=== PATIENT | male | born 1955 | race Two or more races ===

== ENCOUNTER 2024-05-04 13:54 | Inpatient (IN) | payer MEDICAID, OTHER ==
[~2024-05-04] VITALS: Ht 154.9 cm; Wt 79.0 kg
--- NOTE | 2024-05-04 14:51 | ED.PDOC ---
Musculoskeletal HPI Comments 68y M who presents to the ED for chief complaint of lower extremity pain. Pt states he was using a furniture dolley and moving approx 200 lbs of furniture and states the dolley and furniture fell on pt which pt states was approx 2 weeks prior. Pt has since been having ambulating and has been having pain by the L hip. Pt states over the past 2 days,he has noticed increasing pain from the L hip down to the L foot and came to the ED for further evaluation. pt has noted increased swelling by the L foot down. Pt otherwise denies any other symptoms at this time. Chief Complaint: Lower Extremity Time Seen by MD: 14:48 Primary Care Provider: DR ROSAS Reviewed Notes: Nurses Notes, Medications Allergies: Coded Allergies: NO KNOWN ALLERGIES (Unverified , 05/04/24) Information Source: Patient, Spouse Mode of Arrival: Ambulatory Brought in by: spouse Location: Left Extremity Location: Foot, Hip Timing: Weeks Prehospital treatment: None Severity: Moderate Able to Move Extremity: Yes Bear Weight: Limited Pain: Moderate Mechanism: Spontaneous Circumstances: Fall Onset of Symptoms: Spontaneous Symptoms: Swelling, Pain DVT Risk Factors: NONE Last Tetanus: Unknown Associated signs and symptoms: Leg pain, Hip pain Past Medical History PAST MEDICAL HISTORY: Denies Surgical History (Other): R elbow surgery Family History Family History: Family hx of DM Social History Smoker: Non-Smoker Alcohol: Occasionally Drugs: Denies Drug Use Lives In: Home Constitutional: denies: chills, diaphoresis, fatigue, fever, malaise, sweats, weakness, others EENTM: denies: blurred vision, double vision, ear bleeding, ear discharge, ear drainage, ear pain, ear ringing, eye pain, eye redness, hearing loss, mouth pain, mouth swelling, nasal discharge, nose bleeding, nose congestion, nose pain, photophobia, tearing, throat pain, throat swelling, voice changes, others Respiratory: denies: cough, hemoptysis, orthopnea, SOB at rest, shortness of breath, SOB with excertion, stridor, wheezing, others Cardiovascular: denies: chest pain, dizzy spells, diaphoresis, Dyspnea on exertion, edema, irregular heart beat, left arm pain, lightheadedness, palpitations, PND, syncope, others Gastrointestinal: denies: abdomen distended, abdominal pain, blood streaked bowels, constipated, diarrhea, dysphagia, difficulty swallowing, hematemesis, me susie, nausea, poor appetite, poor fluid intake, rectal bleeding, rectal pain, vomiting, others Genitourinary: denies: burning, dysuria, flank pain, frequency, hematuria, incontinence, penile discharge, penile sore, pain, testicle pain, testicle swelling, urgency, others Neurological: denies: dizziness, fainting, headache, left sided numbness, left sided weakness, numbness, paresthesia, pre-existing deficit, right sided numbness, right sided weakness, seizure, speech problems, tingling, tremors, weakness, others Musculoskeletal: reports: joint pain (L hip and LLE), joint swelling (L hip and LLE); denies: back pain, gout, muscle pain, muscle stiffness, neck pain, others Integumetry: denies: bruises, change in color, change in hair/nails, dryness, laceration, lesions, lumps, rash, wounds, others Allergic/Immunocompromised: denies: Difficulty Healing, Frequent Infections, Hives, Itching, others Hematologic/Lymphatic: denies: anemia, blood clots, easy bleeding, easy br uising, swollen glands, others Endocrine: denies: excessive hunger, excessive sweating, excessive thirst, excessive urination, flushing, intolerance to cold, intolerance to heat, unexplained weight gain, unexplained weight loss, others Psychiatric: denies: anxiety, bipolar disorder, depression, hopeless, panic disorder, schizophrenia, sleepless, suicidal, others All Other Systems: Reviewed and Negative Physical Exam General Appearance: Moderate Distress HEENT: Normal ENT Inspection, Pharynx Normal, TMs Normal Neck: Full Range of Motion, Non-Tender, Normal, Normal Inspection Respiratory: Chest Non-Tender, Lungs Clear, No Accessory Muscle Use, No Respiratory Distress, Normal Breath Sounds Cardiovascular: No Edema, No JVD, No Murmur, No Gallop, Normal Peripheral Pulses, Regular Rate/Rhythm Breast Exam: Deferred Gastrointestinal: No Organomegaly, Non Tender, No Pulsatile Mass, Normal Bowel Sounds, Soft Genitalia: Deferred Pelvic: Deferred Rectal: Deferred Extremities: No calf tenderness, Normal capillary refill, No pedal edema Musculoskeletal : Location: Left Extremity Location: Femur, Hip Apperance: Swelling, Limited ROM, Tenderness: Moderate Neurologic: Alert, 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 Was a procedure done?: No Differential Diagnosis EXT Differential Diagnosis: Deep Vein Thrombosis, Fracture, Sprain, Dislocation, DJD, Strain X-Ray, Labs, Meds, VS Vital Signs Date Time Temp Pulse Resp B/P (MAP) Pulse Ox O2 Delivery O2 Flow Rate FiO2 05/04/24 18:36 60 13 151/72 (98) 99 05/04/24 17:16 69 05/04/24 16:41 58 18 100 Room Air* 0 21 05/04/24 16:20 98.7 58 18 151/72 (98) 100 98.7 05/04/24 14:08 98.6 63 19 143/82 (102) 99 Lab Test 05/04/24 15:04 Range/Units White Blood Count 6.0 4.4-10.8 10^3/uL Red Blood Count 3.46 L 4.5-5.90 10^6/uL Hemoglobin 10.9 L 13.5-17.5 g/dL Hematocrit 31.6 L 41.0-53.0 % Mean Corpuscular Volume 91.3 80.0-100.0 fL Mean Corpuscular Hemoglobin 31.7 28.0-32.0 pg Mean Corpuscular Hemoglobin Concent 34.7 32.0-36.0 g/dL Red Cell Distribution Width 14.0 11.8-14.3 % Platelet Count 225 140-450 10^3/uL Mean Platelet Volume 7.3 6.9-10.8 fL Neutrophils (%) (Auto) 58.5 37.0-80.0 % Lymphocytes (%) (Auto) 29.6 10.0-50.0 % Monocytes (%) (Auto) 6.0 0.0-12.0 % Eosinophils (%) (Auto) 5.1 0.0-7.0 % Basophils (%) (Auto) 0.8 0.0-2.0 % Neutrophils # (Auto) 3.5 1.6-8.6 10 ^3/uL Lymphocytes # (Auto) 1.8 0.4-5.4 10 ^3/uL Monocytes # (Auto) 0.4 0-1.3 10 ^3/uL Eosinophils # (Auto) 0.3 0-0.8 10 ^3/uL Basophils # (Auto) 0 0-0.2 10 ^3/uL Nucleated Red Blood Cells 0.1 % Sodium Level 140 136-145 mmol/L Potassium Level 3.6 3.5-5.1 mmol/L Chloride Level 107 98-107 mmol/L Carbon Dioxide Level 29 20-31 mmol/L Anion Gap 4 L 5-15 Blood Urea Nitrogen 13 9-23 mg/dL Creatinine 1.11 0.700-1.30 mg/dL Glomerular Filtration Rate Calc 73 >90 mL/min BUN/Creatinine Ratio 11.7 10.0-20.0 Serum Glucose 78 74-106 mg/dL Calcium Level 9.6 8.7-10.4 mg/dL PROCEDURE(s): PL2CT - PELVIS WO CONTRAST IMPRESSION: 1. Comminuted intertrochanteric fracture left femur. Ultrasound of the left lower extremities negative for DVT Based on the findings on the intertroch fracture, the patient was being admitted IV Hep-Lock was established. The patient was being given morphine 4 mg IV push for the pain and Zofran for the nausea The CBC is within normal limits except for anemia with a hemoglobin of 10.9 The patient was being admitted The patient understands and agrees with the management. Images Reviewed?: Images reviewed and evaluated by me Time of 1ST Reevaluation: 15:20 Reevaluation 1ST: Unchanged Patient Education/Counseling: Diagnosis, Treatment, Prognosis Family Education/Counseling: Diagnosis, Treatment, Prognosis Departure 1 Departure Time of Disposition: 18:40 Impression: Primary Impression: Fracture, intertrochanteric, left femur Qualified Codes: S72.142A - Displaced intertrochanteric fracture of left femur, initial encounter for closed fracture Additional Impressions: History of fall Anemia Qualified Codes: D64.9 - Anemia, unspecified Disposition: ADMITTED INPATIENT Admit to: Med Surg Condition: Fair Critical Care Note Critical Care Time?: No Stability Stability form required: Yes Unstable for transfer: ED Physician Assesment (Clinical assesment) Heart Score Heart Score: Heart Score Response (Comments) Value History N/A 0 EKG N/A 0 Age N/A 0 Risk Factors N/A 0 Troponin N/A 0 Total 0 I personally scribed for SWETA CALLAHAN MD ([email or web address]) on 05/04/24 at 14:51. Electronically submitted by Barry Baeza ([email or web address]). I personally scribed for SWETA CALLAHAN MD ([email or web address]) on 05/04/24 at 15:27. Electronically submitted by Barry Baeza ([email or web address]). SWETA CALLAHAN MD May 04, 2024 14:51
--- NOTE | 2024-05-04 15:14 | DVH ---
Exam: CT PELVIS WO CONTRAST History: fall Comparison Study: None available at time of dictation. Technique: Multidetector CT of the pelvis was performed from iliac crests to pubic symphysis after th e administration of intravenous contrast was administered during this examination. Portal venous imag ing was obtained. Axial, coronal and sagittal multiplanar reformats were performed by the technologis t on a separate workstation. Radiation Dose : CT Dose: CTDI volume is 17.73 mGy. Dose-length product is 655.35 mGy*cm Findings: Visualized bowel: No bowel wall thickening or dilatation. Ascites: Absent Lymphadenopathy: No pelvic or mesenteric lymphadenopathy. Vasculature: The visualized abdominal aorta is normal in size and caliber. Abdominal and pelvic vesse ls demonstrate normal enhancement. Pelvic Organs: Unremarkable Musculoskeletal: No acute osseous abnormality. Bladder: Unremarkable Soft tissues: Unremarkable. IMPRESSION: 1. Comminuted intertrochanteric fracture left femur. HS:Y All CT scans at this medical facility are performed using dose modulation techniques as appropriate t o a performed exam including the following: Automated exposure control was utilized; adjustment of th e MA and/or KV according to patient size; and use of iterative reconstruction technique.
[2024-05-04 15:25] LABS: Basophils # (auto) 0 10 ^3/uL (0-0.2); Basophils % (auto) 0.8 % (0.0-2.0); Eosinophils # (auto) 0.3 10 ^3/uL (0-0.8); Eosinophils % (auto) 5.1 % (0.0-7.0); Hematocrit 31.6 % (41.0-53.0); Hemoglobin 10.9 g/dL (13.5-17.5); Lymphocytes # (auto) 1.8 10 ^3/uL (0.4-5.4); Lymphocytes % (auto) 29.6 % (10.0-50.0); Mean Corpuscular Hemoglobin 31.7 pg (28.0-32.0); Mean Corpuscular Hgb Conc. 34.7 g/dL (32.0-36.0); Mean Corpuscular Volume 91.3 fL (80.0-100.0); Monocytes # (auto) 0.4 10 ^3/uL (0-1.3); Neutrophils # (auto) 3.5 10 ^3/uL (1.6-8.6); Neutrophils % (auto) 58.5 % (37.0-80.0); Nucleated Red Blood Cells % 0.1 %; Platelet Count (auto) 225 10^3/uL (140-450); Red Blood Cells 3.46 10^6/uL (4.5-5.90)
[2024-05-04 15:37] LABS: Chloride 107 mmol/L (98-107); Potassium 3.6 mmol/L (3.5-5.1); Sodium 140 mmol/L (136-145)
[2024-05-04 15:38] LABS: Anion Gap 4 (5-15); Carbon Dioxide 29 mmol/L (20-31)
[2024-05-04 15:39] LABS: Calcium 9.6 mg/dL (8.7-10.4)
[2024-05-04 15:43] LABS: Glucose 78 mg/dL (74-106)
[2024-05-04 15:44] LABS: BUN/Creatinine Ratio 11.7 (10.0-20.0); Blood Urea Nitrogen 13 mg/dL (9-23)
[2024-05-04 16:41] VITALS: PULSE 58; RESP 18; O2SAT 100
--- NOTE | 2024-05-04 17:18 | DVH ---
EXAM: US LT LOWER DVT Clinical History: fall Comparison: None Technique: Duplex Doppler evaluation of the deep venous systems of the left lower extremity from the common femo ral veins to the popliteal veins including color Doppler and spectral/pulsed waveform analysis was pe rformed. Findings: No visible intraluminal venous thrombus. No evidence of incompressibility or abnormal color or spectr al Doppler flow visualized in the deep left lower extremity veins. Proximal greater saphenous vein is grossly unremarkable. Impression: 1. No sonographic evidence of deep venous thrombosis throughout the left lower extremity from the pop liteal vein to the common femoral vein.
[2024-05-04] MEDS ORDERED: LORazepam 0.5 MG TAB PO PRN (19:00)
[2024-05-04] MEDS ORDERED: ONDANSETRON HCL 4 MG/2 ML VIAL IV PRN (19:00)
[2024-05-04] MEDS ORDERED: ACETAMINOPHEN 325 MG TAB PO PRN (19:00)
[2024-05-04] MEDS ORDERED: TEMAZEPAM 15 MG CAP PO PRN (19:00)
[2024-05-04] MEDS ORDERED: D5W 5% 1,000 ML IV SCH (19:00)
[2024-05-04] MEDS ORDERED: MAALOX PLUS or MAALOX 30 ML PO PRN (19:00)
--- NOTE | 2024-05-04 19:28 | DVHHP2 ---
History of Present Illness Reason for Visit: Leg pain History of Present Illness 68 yo male moving furniture 2 weeks ago started having severe pain during this process and tried to get through it without medical evaluation patient stated that about 2 days ago the pain became to much to manage and walking became extremely painful on ed evaluation patient was shown to have a fracture current plan is surgical evaluation for possible repair Review of Systems Constitutional: No: Fever, Chills, Sweats, Weakness, Malaise, Other Eyes: No: Pain, Vision change, Conjunctivae inflammation, Eyelid inflammation, Other, Redness ENT: No: Ear pain, Ear discharge, Nose pain, Nose discharge, Nose congestion, Mouth pain, Mouth swelling, Throat pain, Throat swelling, Other Respiratory: No: Cough, Dry, Shortness of breath, SOB with excertion, Wheezing, Hemoptysis, Pleuritic Pain, Sputum, Wheezing, Other Cardiovascular: No: Chest Pain, Palpitations, Orthopnea, Paroxysmal Noc. Dyspne a, Edema, Lt Headedness, Other Gastrointestinal: No: Nausea, Vomiting, Abdominal Pain, Diarrhea, Constipation, Melena, Hematochezia, Other Genitourinary: No Dysuria, No Frequency, No Incontinence, No Hematuria, No Retention, No Other Musculoskeletal: leg pain; No: other, neck pain, shoulder pain, arm pain, back pain, hand pain, foot pain Skin: No: Rash, Lesions, Jaundice, Bruising, Other Neurological: No: Weakness, Numbness, Incoordination, Change in speech, Confusion, Seizures, Other Allergies: Coded Allergies: NO KNOWN ALLERGIES (Unverified , 05/04/24) Exam Vital Signs Vital Signs Date Time Temp Pulse Resp B/P (MAP) Pulse Ox O2 Delivery O2 Flow Rate FiO2 05/04/24 18:36 60 13 151/72 (98) 99 05/04/24 16:41 Room Air* 0 21 05/04/24 16:20 98.7 98.7 General Appearance: Alert, Oriented X3 HEENT: Atraumatic, PERRLA Respiratory: Clear to auscultation, Normal air movement Cardiovascular: Regular rate, Normal S1, Normal S2 Abdominal: Normal bowel sounds, No tenderness Extremities: No clubbing, No cyanosis Skin: No rashes, No breakdown Neuro: Other (decreased ambulation decreased strength ) Labs/Xrays Labs Test 05/04/24 15:04 Range/Units White Blood Count 6.0 4.4-10.8 10^3/uL Red Blood Count 3.46 L 4.5-5.90 10^6/uL Hemoglobin 10.9 L 13.5-17.5 g/dL Hematocrit 31.6 L 41.0-53.0 % Mean Corpuscular Volume 91.3 80.0-100.0 fL Mean Corpuscular Hemoglobin 31.7 28.0-32.0 pg Mean Corpuscular Hemoglobin Concent 34.7 32.0-36.0 g/dL Red Cell Distribution Width 14.0 11.8-14.3 % Platelet Count 225 140-450 10^3/uL Mean Platelet Volume 7.3 6.9-10.8 fL Neutrophils (%) (Auto) 58.5 37.0-80.0 % Lymphocytes (%) (Auto) 29.6 10.0-50.0 % Monocytes (%) (Auto) 6.0 0.0-12.0 % Eosinophils (%) (Auto) 5.1 0.0-7.0 % Basophils (%) (Auto) 0.8 0.0-2.0 % Neutrophils # (Auto) 3.5 1.6-8.6 10 ^3/uL Lymphocytes # (Auto) 1.8 0.4-5.4 10 ^3/uL Monocytes # (Auto) 0.4 0-1.3 10 ^3/uL Eosinophils # (Auto) 0.3 0-0.8 10 ^3/uL Basophils # (Auto) 0 0-0.2 10 ^3/uL Nucleated Red Blood Cells 0.1 % Sodium Level 140 136-145 mmol/L Potassium Level 3.6 3.5-5.1 mmol/L Chloride Level 107 98-107 mmol/L Carbon Dioxide Level 29 20-31 mmol/L Anion Gap 4 L 5-15 Blood Urea Nitrogen 13 9-23 mg/dL Creatinine 1.11 0.700-1.30 mg/dL Glomerular Filtration Rate Calc 73 >90 mL/min BUN/Creatinine Ratio 11.7 10.0-20.0 Serum Glucose 78 74-106 mg/dL Calcium Level 9.6 8.7-10.4 mg/dL Assessment/Plan Assessment/Plan Admit to Med/Surg Hip Fracture Left fracture seen CT pelvic exam PRN pain management requires ortho evaluation Plan discussed with: Patient My Orders Orders - FARIDA NEGRON MD Procedure Category Date Status Time * Orthopedic Consult CONS 05/04/24 Transmitted 18:54 Admit ADMIT 05/04/24 Transmitted 18:55 Code Status CODE 05/04/24 Transmitted 18:55 Vital Signs [facility] 05/04/24 In Process 18:55 Review Orders With [facility] 05/04/24 In Process Adm. 18:55 Npo (Nothing By DIET 05/05/24 Transmitted Mouth) Diet Breakfast Lorazepam Tablet [facility] 05/04/24 Logged (Ativan Tablet) 19:00 Alum & Mag PHA 05/04/24 Logged Hydrox-Simethicone 19:00 Docusate Sodium PHA 05/04/24 Logged Capsule (Colace 19:00 Acetaminophen Tablet PHA 05/04/24 Logged (Tylenol Tablet) 19:00 Temazepam (Restoril) PHA 05/04/24 Logged 19:00 Notify Md Of Changes [facility] 05/04/24 In Process From Base 18:55 Advance Directive [facility] 05/04/24 In Process 18:55 Basic Metabolic Panel LAB 05/05/24 Verified 04:00 Complete Blood Count LAB 05/05/24 Verified 04:00 D5w 5% (Dextrose 5%) [facility] 05/04/24 Logged 19:00 Patient Condition ORDERS 05/04/24 Transmitted 18:55 Allergies [facility] 05/04/24 In Process 18:55 Hydrocodone-Acet PHA 05/04/24 Logged 5/325mg Tab ([place] 19:00 Ondansetron Hcl PHA 05/04/24 Logged (Zofran) 19:00 Morphine Sulfate [facility] 05/04/24 Logged Injection 19:00 Oxygen By Nasal RT 05/04/24 Transmitted Cannula 18:55 Problem List: (1) History of fall (2) Fracture, intertrochanteric, left femur Date of Service: May 04, 2024 Billing Provider: FARIDA NEGRON MD Common Visit Codes: [id number] INP/OBS CARE (HIGH) FARIDA NEGRON MD May 04, 2024 19:28
[2024-05-04] MEDS: D5W/SOD CHL 0.45% 1,000 ML IV SCH (20:55)
[2024-05-04 22:42] VITALS: BP 152/82; PULSE 74; RESP 18; TEMP 98; O2SAT 98
[2024-05-05] VITALS (8 sets, daily range): BP systolic 120–168; BP diastolic 73–85; PULSE 56–84; RESP 11–18; TEMP 97.4–99.1; O2SAT 94–100
[2024-05-05 06:22] LABS: Basophils # (auto) 0 10 ^3/uL (0-0.2); Basophils % (auto) 0.7 % (0.0-2.0); Eosinophils # (auto) 0.3 10 ^3/uL (0-0.8); Eosinophils % (auto) 5.6 % (0.0-7.0); Hematocrit 29.4 % (41.0-53.0); Hemoglobin 10.2 g/dL (13.5-17.5); Lymphocytes # (auto) 1.4 10 ^3/uL (0.4-5.4); Lymphocytes % (auto) 25.4 % (10.0-50.0); Mean Corpuscular Hemoglobin 31.3 pg (28.0-32.0); Mean Corpuscular Hgb Conc. 34.6 g/dL (32.0-36.0); Mean Corpuscular Volume 90.5 fL (80.0-100.0); Monocytes # (auto) 0.3 10 ^3/uL (0-1.3); Monocytes % (auto) 6.5 % (0.0-12.0); Neutrophils # (auto) 3.3 10 ^3/uL (1.6-8.6); Neutrophils % (auto) 61.8 % (37.0-80.0); Platelet Count (auto) 196 10^3/uL (140-450); Red Blood Cells 3.25 10^6/uL (4.5-5.90); Red Cell Distribution Width 13.7 % (11.8-14.3); White Blood Cell 5.3 10^3/uL (4.4-10.8)
[2024-05-05 06:32] LABS: Anion Gap 6 (5-15); Carbon Dioxide 28 mmol/L (20-31); Chloride 109 mmol/L (98-107); Potassium 3.6 mmol/L (3.5-5.1); Sodium 143 mmol/L (136-145)
[2024-05-05 06:33] LABS: Calcium 9.6 mg/dL (8.7-10.4)
[2024-05-05 06:38] LABS: BUN/Creatinine Ratio 12.7 (10.0-20.0); Blood Urea Nitrogen 13 mg/dL (9-23); Glucose 92 mg/dL (74-106)
--- NOTE | 2024-05-05 06:55 | DVH ---
CHEST RADIOGRAPH Indication:cad Technique: Single frontal view of the chest was obtained COMPARISON: None FINDINGS: Lines and Tubes: None Lungs: Clear Pleura: No effusion. No pneumothorax. Cardiomediastinal contours: Unremarkable Bones: Unremarkable IMPRESSION: No acute disease.
[2024-05-05 06:56] LABS: INR 1.15 (0.9-1.15); Prothrombin Time 12.1 sec (9.3-11.8)
--- NOTE | 2024-05-05 07:46 | DVH ---
left hip radiograph CLINICAL INDICATION: hip fracture/ surg planning TECHNIQUE: 2 radiographic views of the left hip were obtained. Comparison: None FINDINGS: Comminuted intertrochanteric fracture left femur IMPRESSION: Comminuted intertrochanteric fracture left femur
[2024-05-05 08:26] LABS: Hepatitis B Surface Antigen Negative (Negative)
[2024-05-05 08:47] LABS: Hepatitis C Antibody Negative (Negative)
[2024-05-05] MEDS ORDERED: KETAMINE 50mg/ML 1ml syringe ONE (09:17)
[2024-05-05] MEDS ORDERED: fentaNYL CITRATE 100 MCG/2 ML VL ONE (09:17)
[2024-05-05] MEDS ORDERED: MIDAZOLAM HCL 2MG/2ML 2ml VIAL (1mg/ml) ONE (09:17)
[2024-05-05] MEDS: BUPIVACAINE W/ EPINEPH 0.5% INJ 50ML MDV IJ ONE (09:31)
--- NOTE | 2024-05-05 11:34 | DVHPN2 ---
Subjective The patient is seen and examined at bedside. No change overnight. Complain of leg pain. Waiting for surgery. Reviewed: Care Plan, H&P, Labs, Medications, Previous Orders Changes from previous H/P or p: No Changes Eyes: No Pain, No Vision change, No Conjunctivae inflammation, No Eyelid inflammation, No Other, No Redness ENT: No Ear pain, No Ear discharge, No Nose pain, No Nose discharge, No Nose congestion, No Mouth pain, No Mouth swelling, No Throat pain, No Throat swelling, No Other Cardiovascular: No Chest Pain, No Palpitations, No Orthopnea, No Paroxysmal Noc. Dyspnea, No Edema, No Lt Headedness, No Other Respiratory: No Cough, No Dry, No Shortness of breath, No SOB with excertion, No Wheezing, No Hemoptysis, No Pleuritic Pain, No Sputum, No Other Gastrointestinal: No Nausea, No Vomiting, No Abdominal Pain, No Diarrhea, No Constipation, No Melena, No Hematochezia, No Other Genitourinary: No Dysuria, No Frequency, No Incontinence, No Hematuria, No Retention, No Other Musculoskeletal: No other, No neck pain, No shoulder pain, No arm pain, No back pain, No hand pain; leg pain; No foot pain Skin: No Rash, No Lesions, No Jaundice, No Bruising, No Other Objective Vitals Vital Signs Date Time Temp Pulse Resp B/P (MAP) Pulse Ox O2 Delivery O2 Flow Rate FiO2 05/05/24 09:00 98.3 68 18 138/77 (97) 97 98.3 05/04/24 22:42 Room Air* 0 21 Intake/Output Intake and Output 05/05/24 06:59 Intake Total 510 ml Output Total 300 ml Balance 210 ml Intake Oral 0 ml IV Total 510 ml Output Urine Total 300 ml General Appearance: Alert, Oriented X3, Cooperative, No acute distress HEENT: Atraumatic, PERRLA, EOMI, Mucous membr. moist/pink Neck: Supple Lungs: Clear to auscultation, Normal air movement Cardiovascular: Regular rate, Normal S1, Normal S2, No murmurs, Gallops, Rubs Abdomen: Normal bowel sounds, Soft, No tenderness Musculoskeletal: Other (Left leg limited range of motion due to the fracture) Psych/Mental Status: Mental status NL Medications Current Medications Medications Dose Ordered Sig/Payal Route Start Time Stop Time Status Last Admin Dose Admin Lorazepam 0.5 mg Q6HP PRN PO 05/04/24 19:00 Al Hydrox/Mg Hydrox/Simethicone 30 ml Q6HP PRN PO 05/04/24 19:00 Docusate Sodium 100 mg BIDPRN PRN PO 05/04/24 19:00 Acetaminophen 650 mg Q6HP PRN PO 05/04/24 19:00 Temazepam 15 mg QHSP PRN PO 05/04/24 19:00 Acetaminophen/ Hydrocodone Bitart 1 tab Q4HP PRN PO 05/04/24 19:00 Ondansetron HCl 4 mg Q4HP PRN IV 05/04/24 19:00 Morphine Sulfate 2 mg Q4HPRN PRN IV 05/04/24 19:00 Dextrose/Sodium Chloride 1,000 ml @ 60 mls/hr [id number] IV 05/04/24 20:45 05/04/24 20:55 60 MLS/HR Laboratory Results Laboratory Tests 05/05/24 05:43 Chemistry Test 05/04/24 15:04 05/05/24 05:43 Calcium Level 9.6 mg/dL (8.7-10.4) 9.6 mg/dL (8.7-10.4) Coagulation Test 05/05/24 05:43 Prothrombin Time 12.1 sec (9.3-11.8) H Prothrombin Time INR 1.15 (0.9-1.15) Labs and/or images reviewed: Labs reviewed by me Assessment/Plan Assessment/Plan History of fall while moving furniture Fracture of intertrochanteric left femur Plan: Continuing current management with IV pain medication and [place] for pain control. Continuing with IV fluid. Waiting for orthopedic surgeon for surgery. Plan discussed with: Patient Date of Service: May 05, 2024 Billing Provider: MINDI BOWENS MD Common Visit Codes: [id number] INP/OBS CARE(HIGH) MINDI BOWENS MD May 05, 2024 11:34
[2024-05-05] MEDS: ceFAZolin 2 GM/D5W100ml 100 ML IV ONE (11:52)
[2024-05-05] MEDS: TETRACAINE 1% INJ 2 ML VIAL IJ ONE (12:39)
[2024-05-05] MEDS ORDERED: ONDANSETRON HCL 4 MG/2 ML VIAL IV ONE (14:15)
[2024-05-05] MEDS ORDERED: ePHEDrine SULFATE 50 MG/ML AMP IV PRN (14:15)
[2024-05-05] MEDS ORDERED: ePHEDrine SULFATE 50 MG/ML AMP ONE (14:32)
--- NOTE | 2024-05-05 15:09 | DVH ---
C-ARM FLUOROSCOPY: PROCEDURE: ORIF left hip FLUOROSCOPY TIME: 43 . 4 sec
--- NOTE | 2024-05-05 15:09 | DVH ---
C-ARM FLUOROSCOPY: PROCEDURE: ORIF left hip FLUOROSCOPY TIME: 43 . 4 sec
[2024-05-05] MEDS: DOCUSATE SOD 100 MG CAP PO PRN (16:45)
[2024-05-05] MEDS: MORPHINE SULFATE INJ 2 MG/ml SYRG IV PRN (16:45)
--- NOTE | 2024-05-05 18:07 | DVHOP ---
DATE OF SURGERY: 05/04/2024 PREOPERATIVE DIAGNOSIS: Left intertrochanteric hip fracture. POSTOPERATIVE DIAGNOSIS: Left intertrochanteric hip fracture. PROCEDURES: * Placement of a left femoral intramedullary nail. * Stress radiographs of the left hip. SURGEON: Danny Dietrich MD ANESTHESIA: General. COMPLICATIONS: None. CONDITION: Stable to PACU. ASSESSMENT AND PLAN: The patient will be weightbearing as tolerated on the left lower extremity, PT, OT out of bed daily. Follow up in 2 weeks' time. SURGICAL INDICATIONS: The patient is a 68-year-old male who had a fall 2 weeks ago. He has not been seen in the emergency room. He came to the emergency room yesterday, was noted to have an intertrochanteric hip fracture. He stated that he has not been ambulating since the fall for approximately 2 weeks' time. He is limping around since that injury. He was seen in the office. The patient understands the risks and benefits of surgical and nonsurgical treatment based on the intertrochanteric hip fracture. Based on these parameters, the patient understands the risks and benefits of surgical and nonsurgical treatment, opts for surgical treatment of the left lower extremity. DESCRIPTION OF PROCEDURE: The patient seen in the preoperative holding area, the left lower extremity was marked. The patient was brought to the operative suite. General anesthesia was then induced. Timeout was called per hospital protocol. Left lower extremity was prepped and draped in a standard fashion. Ancef was given for infection prophylaxis. Timeout was performed to hospital protocol. The left lower extremity was prepped and draped in a standard fashion. Incision was made approximately 3 cm to the tip of the greater trochanteric region. Once that is then done, the incision was then made followed by the ball-tipped guidewire being placed, followed by an AP and lateral x-ray to ensure adequate starting point on the tip of the greater trochanteric region. Opening reamer was then placed based on the longevity of the fracture and callus. The ball-tipped guidewire was then placed and a 12 mm reamer was then passed. A 10 x 125 ITS nail was then brought onto the field and placed. The screw was then placed center-center position. I tried to get the best diameter based on the chronicity of the fracture. Based on these parameters, it was measured to be 95 mm in length. A short screw was then placed based on the inferior calcar being robust in nature. Once that was then done, placed. Once that was then done, a distal interlock screw was then placed in a perfect [place] technique. Once that was then done, stress radiographs were undertaken. Once that was then done and taken, the guide was then removed. Stress radiographs of the left hip showed adequate fracture fixation. The wound was irrigated copiously with saline and closed with 0 Vicryl, 2-0 Vicryl and candy. The patient will be weightbearing as tolerated on the left lower extremity. PT, OT out of bed daily. Follow up in 2 weeks' time. MD NICK Duron/SHARON/ZEINA/ERIK TID: [id number] RECEIPT: [id number]
[2024-05-06] VITALS (8 sets, daily range): BP systolic 121–153; BP diastolic 70–80; PULSE 72–84; RESP 18–21; TEMP 98.1–99.4; O2SAT 94–99
[2024-05-06] MEDS: HYDROcodone-ACET 5/325MG TAB PO PRN (00:44)
--- NOTE | 2024-05-06 13:47 | DVHPN2 ---
Reviewed: Care Plan Changes from previous H/P or p: No Changes General: Per HPI Eyes: No Pain, No Vision change, No Conjunctivae inflammation, No Eyelid inflammation, No Other, No Redness ENT: No Ear pain, No Ear discharge, No Nose pain, No Nose discharge, No Nose congestion, No Mouth pain, No Mouth swelling, No Throat pain, No Throat swelling, No Other Cardiovascular: No Chest Pain, No Palpitations, No Orthopnea, No Paroxysmal Noc. Dyspnea, No Edema, No Lt Headedness, No Other Respiratory: No Cough, No Dry, No Shortness of breath, No SOB with excertion, No Wheezing, No Hemoptysis, No Pleuritic Pain, No Sputum, No Other Gastrointestinal: No Nausea, No Vomiting, No Abdominal Pain, No Diarrhea, No Constipation, No Melena, No Hematochezia, No Other Genitourinary: No Dysuria, No Frequency, No Incontinence, No Hematuria, No Retention, No Other Musculoskeletal: No other, No neck pain, No shoulder pain, No arm pain, No back pain, No hand pain; leg pain; No foot pain Skin: No Rash, No Lesions, No Jaundice, No Bruising, No Other Objective Vitals Vital Signs Date Time Temp Pulse Resp B/P (MAP) Pulse Ox O2 Delivery O2 Flow Rate FiO2 05/06/24 12:33 98.1 80 19 121/77 (92) 94 98.1 05/06/24 08:10 Room Air* 0 21 Intake/Output Intake and Output 05/06/24 07:00 Intake Total 750 ml Output Total 1350 ml Balance -600 ml Intake Oral 650 ml IV Total 100 ml Output Urine Total 1350 ml General Appearance: Alert, Oriented X3 HEENT: Atraumatic Cardiovascular: Regular rate Abdomen: Normal bowel sounds Medications Current Medications Medications Dose Ordered Sig/Payal Route Start Time Stop Time Status Last Admin Dose Admin Lorazepam 0.5 mg Q6HP PRN PO 05/04/24 19:00 Al Hydrox/Mg Hydrox/Simethicone 30 ml Q6HP PRN PO 05/04/24 19:00 Docusate Sodium 100 mg BIDPRN PRN PO 05/04/24 19:00 05/06/24 09:50 100 MG Acetaminophen 650 mg Q6HP PRN PO 05/04/24 19:00 Temazepam 15 mg QHSP PRN PO 05/04/24 19:00 Acetaminophen/ Hydrocodone Bitart 1 tab Q4HP PRN PO 05/04/24 19:00 05/06/24 06:29 1 TAB Ondansetron HCl 4 mg Q4HP PRN IV 05/04/24 19:00 Morphine Sulfate 2 mg Q4HPRN PRN IV 05/04/24 19:00 05/06/24 09:52 2 MG Dextrose/Sodium Chloride 1,000 ml @ 60 mls/hr [id number] IV 05/04/24 20:45 05/06/24 06:30 60 MLS/HR Laboratory Results Laboratory Tests 05/05/24 05:43 Labs and/or images reviewed: Labs reviewed by me, Image(s) reviewed by me Assessment/Plan Assessment/Plan Hip Fracture Left fracture seen CT pelvic exam PRN pain management requires ortho evaluation s/p surgery PT/OT to evaluate Plan discussed with: Patient Date of Service: May 06, 2024 Billing Provider: MIGUELINA HOLGUIN DO Common Visit Codes: [id number] INP/OBS CARE(HIGH) MIGUELINA HOLGUIN DO May 06, 2024 13:47
[2024-05-07] VITALS (7 sets, daily range): BP systolic 125–145; BP diastolic 56–78; PULSE 75–88; RESP 16–18; TEMP 36.7; O2SAT 93–97
[2024-05-07] MEDS ORDERED: NAP500T PO (12:43)
--- NOTE | 2024-05-07 12:45 | DVHDS2 ---
Discharge Summary Date of Admission May 04, 2024 at 18:55 Date of Discharge: May 07, 2024 Labs/Diagnostic Data: Laboratory Results Test 05/05/24 05:43 05/04/24 20:19 White Blood Count 5.3 10^3/uL (4.4-10.8) Red Blood Count 3.25 10^6/uL (4.5-5.90) Hemoglobin 10.2 g/dL (13.5-17.5) Hematocrit 29.4 % (41.0-53.0) Mean Corpuscular Volume 90.5 fL (80.0-100.0) Mean Corpuscular Hemoglobin 31.3 pg (28.0-32.0) Mean Corpuscular Hemoglobin Concent 34.6 g/dL (32.0-36.0) Red Cell Distribution Width 13.7 % (11.8-14.3) Platelet Count 196 10^3/uL (140-450) Mean Platelet Volume 7.2 fL (6.9-10.8) Neutrophils (%) (Auto) 61.8 % (37.0-80.0) Lymphocytes (%) (Auto) 25.4 % (10.0-50.0) Monocytes (%) (Auto) 6.5 % (0.0-12.0) Eosinophils (%) (Auto) 5.6 % (0.0-7.0) Basophils (%) (Auto) 0.7 % (0.0-2.0) Neutrophils # (Auto) 3.3 10 ^3/uL (1.6-8.6) Lymphocytes # (Auto) 1.4 10 ^3/uL (0.4-5.4) Monocytes # (Auto) 0.3 10 ^3/uL (0-1.3) Eosinophils # (Auto) 0.3 10 ^3/uL (0-0.8) Basophils # (Auto) 0 10 ^3/uL (0-0.2) Nucleated Red Blood Cells 0.0 % Prothrombin Time 12.1 sec (9.3-11.8) Prothrombin Time INR 1.15 (0.9-1.15) Sodium Level 143 mmol/L (136-145) Potassium Level 3.6 mmol/L (3.5-5.1) Chloride Level 109 mmol/L (98-107) Carbon Dioxide Level 28 mmol/L (20-31) Anion Gap 6 (5-15) Blood Urea Nitrogen 13 mg/dL (9-23) Creatinine 1.02 mg/dL (0.700-1.30) Glomerular Filtration Rate Calc 81 mL/min (>90) BUN/Creatinine Ratio 12.7 (10.0-20.0) Serum Glucose 92 mg/dL (74-106) Calcium Level 9.6 mg/dL (8.7-10.4) Hepatitis B Surface Antigen Negative (Negative) Hepatitis C Antibody Negative (Negative) POC Glucose 65 mg/dl (70-106) Other Laboratory Tests 05/05/24 05:43 Brief Hx & Hospital Course: 68 yo male moving furniture 2 weeks ago started having severe pain during this process and tried to get through it without medical evaluation patient stated that about 2 days ago the pain became to much to manage and walking became extremely painful on ed evaluation patient was shown to have a fracture current plan is surgical evaluation for possible repair Hip Fracture Left fracture seen CT pelvic exam PRN pain management requires ortho evaluation s/p surgery PT/OT to evaluate discharged to home with physical therapy Condition at Discharge: Stable Final Diagnosis/Problems List left femur fx s/p surgery Discharge Disposition: Home with Health Services Discharge Instruct/Medications Diet: Cardiac 2g Na,low cholest Activity: No Restrictions, As Tolerated Follow Up/Referral: please follow up with his PCP Discharge Statement: "Patient was advised to return to the ER or call 911 if any headaches, dizziness, shortness of breath, chest pain, abdominal pain, bleeding, fevers, or worsening of medical condition. Patient was counseled about treatment plan, medications, possible side effects, patientverbalized understanding. All questions were answered to the best of my ability. This discharge took greater then 30 minutes in planning, reviewing documentation, counseling the patient, and discussing with other team members." ASSESSMENT ASSESSMENT Assessment left femur fx s/p surgery Date of Service: May 07, 2024 Billing Provider: MIGUELINA HOLGUIN DO Common Visit Codes: [id number]-WWZ/[id number] DISCH DAY >30min MIGUELINA HOLGUIN DO May 07, 2024 12:45
[2024-05-08 01:00] VITALS: BP 141/78; PULSE 84; RESP 16; TEMP 99.9; O2SAT 100
[2024-05-08 05:00] VITALS: BP 127/73; PULSE 82; RESP 16; TEMP 99.3; O2SAT 96
[2024-05-08 08:00] VITALS: PULSE 98; RESP 18; O2SAT 94
[2024-05-08 09:00] VITALS: BP 129/75; PULSE 82; RESP 18; TEMP 98.6; O2SAT 97
[2024-05-08 13:09] VITALS: BP 122/70; PULSE 72; RESP 20; TEMP 98.5; O2SAT 99
--- NOTE | 2024-05-08 15:26 | DVHPN2 ---
Reviewed: Care Plan, H&P, Labs, Medications, Previous Orders, Radiology Changes from previous H/P or p: No Changes General: Per HPI Eyes: No Pain, No Vision change, No Conjunctivae inflammation, No Eyelid inflammation, No Other, No Redness ENT: No Ear pain, No Ear discharge, No Nose pain, No Nose discharge, No Nose congestion, No Mouth pain, No Mouth swelling, No Throat pain, No Throat swelling, No Other Cardiovascular: No Chest Pain, No Palpitations, No Orthopnea, No Paroxysmal Noc. Dyspnea, No Edema, No Lt Headedness, No Other Respiratory: No Cough, No Dry, No Shortness of breath, No SOB with excertion, No Wheezing, No Hemoptysis, No Pleuritic Pain, No Sputum, No Other Gastrointestinal: No Nausea, No Vomiting, No Abdominal Pain, No Diarrhea, No Constipation, No Melena, No Hematochezia, No Other Genitourinary: No Dysuria, No Frequency, No Incontinence, No Hematuria, No Retention, No Other Musculoskeletal: No other, No neck pain, No shoulder pain, No arm pain, No back pain, No hand pain; leg pain; No foot pain Skin: No Rash, No Lesions, No Jaundice, No Bruising, No Other Objective Vitals Vital Signs Date Time Temp Pulse Resp B/P (MAP) Pulse Ox O2 Delivery O2 Flow Rate FiO2 05/08/24 13:09 98.5 72 20 122/70 (87) 99 98.5 05/08/24 08:00 Room Air* 0 21 Intake/Output Intake and Output 05/08/24 07:00 Intake Total 1200 ml Output Total 1600 ml Balance -400 ml Intake Oral 1200 ml Output Urine Total 1600 ml General Appearance: Alert, Oriented X3, Cooperative Chest/Breasts: Discharge Cardiovascular: Regular rate, Normal S1 Abdomen: Normal bowel sounds Medications Current Medications Medications Dose Ordered Sig/Payal Route Start Time Stop Time Status Last Admin Dose Admin Lorazepam 0.5 mg Q6HP PRN PO 05/04/24 19:00 Al Hydrox/Mg Hydrox/Simethicone 30 ml Q6HP PRN PO 05/04/24 19:00 Docusate Sodium 100 mg BIDPRN PRN PO 05/04/24 19:00 05/06/24 09:50 100 MG Acetaminophen 650 mg Q6HP PRN PO 05/04/24 19:00 Temazepam 15 mg QHSP PRN PO 05/04/24 19:00 Acetaminophen/ Hydrocodone Bitart 1 tab Q4HP PRN PO 05/04/24 19:00 05/08/24 06:33 1 TAB Ondansetron HCl 4 mg Q4HP PRN IV 05/04/24 19:00 Morphine Sulfate 2 mg Q4HPRN PRN IV 05/04/24 19:00 05/07/24 09:35 2 MG Dextrose/Sodium Chloride 1,000 ml @ 60 mls/hr [id number] IV 05/04/24 20:45 05/07/24 04:48 60 MLS/HR Laboratory Results Laboratory Tests 05/05/24 05:43 Labs and/or images reviewed: Labs reviewed by me, Image(s) reviewed by me Assessment/Plan Assessment/Plan Hip Fracture Left fracture seen CT pelvic exam PRN pain management requires ortho evaluation s/p surgery d/c to home with HH pending service set up Plan discussed with: Patient Date of Service: May 08, 2024 Billing Provider: MIGUELINA HOLGUIN DO Common Visit Codes: [id number] INP/OBS CARE(HIGH) MIGUELINA HOLGUIN DO May 08, 2024 15:26
== END 2024-05-08 16:45 | disposition home health service (06) | DRG 308 ==
LOC: ER 13:54 → OVERFLOW 18:55 → WEST WING 19:02
PROVIDERS: ADMIT Hospitalist; ATTEND Internal Medicine
PROC: 0QH706Z Insertion of Intramedullary Internal Fixation Device into Left Upper Femur, Open Approach (ICD-10-PCS; principal; 2024-05-05 13:01)
DX: S72.142A Displaced intertrochanteric fracture of left femur, initial encounter for closed fracture (principal); D64.9 Anemia, unspecified; Z83.3 Family history of diabetes mellitus; W18.39XA Other fall on same level, initial encounter; Y93.89 Activity, other specified; Y92.89 Other specified places as the place of occurrence of the external cause; Y99.8 Other external cause status
CPT/HCPCS: 36415; 71045; 72192; 73501; 73502; 76000; 80048; 82962; 85025; 85610; 86803; 86850; 86900; 86901; 87340; 93971; 97110; 97116; 97163; 97530; G0378; J2250